=== PATIENT | female | born 1950 | race Caucasian/White ===

== ENCOUNTER 2022-11-07 14:26 | Outpatient (CLI) | payer OTHER, MEDICARE, SELFPAY ==
--- NOTE | ~2022-11-07 | CT_ITS ---
EXAMINATION: CT LE LT wo con DATE: 11/07/2022 15:09 INDICATION: Left knee osteoarthritis. TECHNIQUE: Computed tomography (CT) of the left lower limb was performed without intravenous contrast . Automated exposure control and iterative reconstruction technique were employed. The dose-length pr oduct was 1522.59 mGy-cm. COMPARISON: Left knee radiographs 10/30/22 FINDINGS: Bone alignment is normal. No fracture. There are benign bone islands in the left pelvis and proximal left femur. There is moderate left hip osteoarthritis. Left knee demonstrates moderate oste oarthritis of medial and patellofemoral compartments and mild osteoarthritis of lateral compartment. There is a small knee joint effusion. IMPRESSION: 1. Moderate left knee osteoarthritis. 2. Small left knee joint effusion. 3. Moderate left hip osteoarthritis. Reviewed, dictated and finalized at location A.
== END 2022-11-07 14:27 | disposition home or self-care (01) ==
LOC: ANHIMG 14:32
PROVIDERS: Visit Provider Orthopaedic Surgery
DX: M17.12 Unilateral primary osteoarthritis, left knee (principal); M25.462 Effusion, left knee; M16.12 Unilateral primary osteoarthritis, left hip
CPT/HCPCS: 73700

== ENCOUNTER 2023-01-08 10:36 | Outpatient (CLI) | payer OTHER, MEDICARE, SELFPAY ==
--- NOTE | 2023-01-08 11:05 | ECG_ITS ---
Measurements Intervals [place] Rate: 65 P: 6 MA: 149 QRS: 19 QRSD: 86 T: 74 QT: 390 QTc: 407 Interpretive Statements SINUS RHYTHM EARLY PRECORDIAL R/S TRANSITION MINIMAL Q WAVES- HIGH LATERAL LEADS NONSPECIFIC ST-T WAVE ABNORMALITY- HIGH LATERAL LEADS BORDERLINE ECG NO PREVIOUS ECG AVAILABLE FOR COMPARISON Electronically Signed On 01-08-2023 11:57:22 SURVEYOR ROD HELPER by Tuan Andersen D.O.
[2023-01-08 11:31] LABS: Hematocrit 42.2 % (37.0-47.0); Hemoglobin 13.8 g/dL (12.0-15.0)
[2023-01-08 11:50] LABS: Albumin Level 4.6 g/dL (3.5-5.1); Estimated Glomerular Filt Rate > 60; Glucose 98 mg/dL (65-110)
== END 2023-01-08 10:37 | disposition home or self-care (01) ==
PROVIDERS: Visit Provider Orthopaedic Surgery
DX: Z01.818 Encounter for other preprocedural examination (principal); I10 Essential (primary) hypertension; M17.12 Unilateral primary osteoarthritis, left knee; E78.5 Hyperlipidemia, unspecified
CPT/HCPCS: 36415; 82040; 82565; 82947; 85014; 85018; 93005

== ENCOUNTER 2023-03-20 12:02 | Outpatient (CLI) | payer OTHER, MEDICARE, SELFPAY ==
[2023-03-20 13:03] LABS: Basophils Percent Auto 0.6 % (0.2-1.2); Eosinophils Absolute Auto 0.1 K/mm3 (0-0.3); Eosinophils Percent Auto 1.8 % (0-4.4); Hematocrit 44.3 % (37.0-47.0); Hemoglobin 14.4 g/dL (12.0-15.0); Immature Granulocyte Absolute 0.02 K/mm3 (0.00-0.031); Immature Granulocyte Percent A 0.3 % (0-0.5); Lymphocytes Absolute Auto 1.34 K/mm3 (0.9-3.2); Lymphocytes Percent Auto 19.6 % (18.3-44.2); Mean Corpuscular HGB Conc 32.5 g/dl (32-36); Mean Corpuscular Hemoglobin 30.8 pg (26-34); Mean Corpuscular Volume 94.7 fl (80-100); Monocytes Absolute Auto 0.3 K/mm3 (0.1-0.6); Neutrophils Percent Auto 72.7 % (45.5-73.1); Platelet Count Result 294 k/mm3 (150-375); Red Blood Count 4.68 M/mm3 (4.2-5.4); Red Cell Distribution Width 12.1 % (11.5-14.5); White Blood Count 6.8 K/mm3 (4.5-10.0)
[2023-03-20 13:11] LABS: Albumin Level 4.9 g/dL (3.5-5.1)
[2023-03-20 13:14] LABS: Anion Gap 8 mmol/L (8-16); Blood Urea Nitrogen 21 mg/dL (7-17); Calcium 9.3 mg/dL (8.4-10.2); Carbon Dioxide 27 mmol/L (22-30); Chloride 104 mmol/L (98-107); Estimated Glomerular Filt Rate > 60; Glucose 157 mg/dL (65-110); Potassium 4.7 mmol/L (3.4-5.0); Sodium 139 mmol/L (137-145)
[2023-03-20 13:48] LABS: Urine Cotinine NEGATIVE
[2023-03-20 13:58] LABS: Hemoglobin A1C 6.1 % (<5.7)
[2023-03-20 14:14] LABS: MRSA (PCR) NOT DETECTED (NOT DETECTE)
== END 2023-03-20 12:03 | disposition home or self-care (01) ==
LOC: ANHSURGERY 12:10
PROVIDERS: Anesthesiology; Visit Provider Orthopaedic Surgery
DX: Z01.818 Encounter for other preprocedural examination (principal); M17.12 Unilateral primary osteoarthritis, left knee; E11.9 Type 2 diabetes mellitus without complications
CPT/HCPCS: 36415; 80048; 80307; 82040; 83036; 85025; 86850; 86900; 86901; 87641

== ENCOUNTER 2023-04-01 01:26 | Day surgery (SDC) | payer OTHER, MEDICARE, SELFPAY ==
--- NOTE | 2023-03-20 11:40 | PC.NURSE ---
PRE-OP INSTRUCTIONS, PLEASE READ CAREFULLY Report to the Outpatient Waiting Room, entrance under the green pavilion located off [facility], at time _0830_ on date _04/01/23_. Planned Procedure Time: _1030_. PACK A SMALL OVERNIGHT BAG AND LEAVE IN THE CAR ALONG WITH YOUR WALKER Time changes happen often and if your time is changed the preop area will call you the afternoon before. - You and your visitor will be asked to self-screen and do not enter if you have any COVID symptoms. - A mask is optional within the hospital at this time. -VISITING HOURS 8AM-8PM Patients may have clear liquids (water, carbonated beverages, clear teas, apple juice) until 3 hours prior to surgery (0730 AM) with a maximum of 20 ounces. - No food from midnight until time of surgery Take the following medications with a SIP of water the morning of surgery: _BUPROPION, OXCARBAZEPINE_ DO NOT STOP ANY OF YOUR OTHER PRESCRIPTION MEDICATIONS PRIOR TO SURGERY ?EXCEPT THE FOLLOWING Medications to discontinue per ANESTHESIA - _MULTIVITAMINS & SUPPLEMENTS 3 DAYS PRIOR TO SURGERY, Date to take last dose 03/28/23_ Please no make-up, nail croatian, hairspray, perfume, deodorant, or body powder the day of surgery. No jewelry (including any body piercings) or valuables the day of surgery, leave them at home. Please take a shower or bath the night before, or the morning of, surgery with an antibacterial soap. Wear comfortable, loose fitting clothing. - Jewelry must be removed prior to entering the operating room. Rings and piercings that are not removed may be cut off. - The hospital will not accept responsibility for valuables. - Please leave all valuables, including medications, at home the day of surgery. If you are going home after surgery, a licensed otr truck driver must drive you home. - NO public transportation without another adult if you receive anesthesia. - We recommend that an adult stay with you for 24 hours following discharge. - We also recommend that you do not drive, make important decision, drink alcoholic beverages, or take any drugs that were not prescribed by your health care provider for at least 24 hours after your discharge time. Follow any additional instructions given to you from your surgeon. If you or anyone in your household have experienced Covid symptoms in the past week, please notify your surgeon or the nurse liaison at the phone number below for possible testing. Instructions given to _PATIENT_and asked if any additional questions and then verbalized understanding. Patient advised to call surgeon office or pre surgery nurse liaison [phone] if any additional questions.
[2023-03-20 12:28] VITALS: BP 134/84; PULSE 78; RESP 18; TEMP 37.3; O2SAT 100; BMI 27.8
[2023-04-01] VITALS (13 sets, daily range): BP systolic 103–151; BP diastolic 55–84; PULSE 58–86; RESP 12–17; TEMP 36.4–37.1; O2SAT 94–98
--- NOTE | ~2023-04-01 | XR_ITS ---
EXAMINATION: [id number] DATE: 04/01/2023 11:41 INDICATION: Postoperative evaluation following left total knee arthroplasty. TECHNIQUE: Anteroposterior and lateral views of the left knee were obtained. COMPARISON: None. FINDINGS: Left total knee arthroplasty with patellar resurfacing appears well seated and in near anatomic align ment. No fractures identified. Expected postoperative subcutaneous and intra-articular gas. IMPRESSION: 1. Left total knee arthroplasty, negative for postoperative purposes. Reviewed, dictated and finalized at location A. D HAND
--- NOTE | 2023-04-01 07:09 | WPDHPUPDATE1 ---
History and Physical Update Update Date/Time: 04/01/23 07:09 History and Physical has been reviewed, including an updated exam of the patient. There are NO changes in the patient's condition. Risks, benefits, and alternatives have been discussed and questions answered. Patient agrees to proceed with procedure.
[2023-04-01] MEDS: ACETAMINOPHEN 500 MG TABLET 1000 MG PO ×2 (09:10→16:54)
[2023-04-01] MEDS: LACTATED RINGERS 1,000 ML 30 ML IV CONT ×2 (09:25→11:31)
[2023-04-01 09:30] LABS: Glucose Point of Care 107 mg/dl (65-105)
[2023-04-01] MEDS: TRANEXAMIC ACID 1,000MG/ISO100 1,000 MG/100 ML BAG 200 MG IVPB (09:30)
--- NOTE | 2023-04-01 09:33 | WPDANESEPPF ---
Anes - Initial Pre Proc Eval Procedure: Operation Date: 04/01/23 10:30 Proposed Procedures p Left Custom Total Knee Arthroplasty - Jerardo Urena MD Date/Time: 04/01/23 09:33 Surgeon: Jerardo Urena MD Pre Op Diagnosis: primary OA left knee Patient Data Age: 72 Gender: F Height: 1.56 m Weight: 67.8 kg Last Vital Signs Temp 37.3 C 03/20/23 12:28 Pulse 78 03/20/23 12:28 Resp 18 03/20/23 12:28 BP 134/84 03/20/23 12:28 Pulse Ox 100 03/20/23 12:28 O2 Del Method Room Air 03/20/23 12:28 Allergies Allergy/AdvReac Type Severity Reaction Status Date / Time erythromycin base AdvReac Nausea and Verified 04/01/23 08:55 Vomiting Home Medications Medication Instructions Recorded Confirmed Type bupropion HCl 300 mg 24 hr tablet, 300 mg PO QAM 06/04/22 04/01/23 History extended release donepezil 5 mg tablet 5 mg PO EVERY OTHER DAY 06/04/22 03/20/23 History ibandronate 150 mg tablet (Boniva) 150 mg PO MONTHLY 06/04/22 04/01/23 History lisinopril 10 mg tablet 10 mg PO DAILY 06/04/22 04/01/23 History oxcarbazepine 150 mg tablet 150 mg PO DAILY 06/04/22 04/01/23 History pantoprazole 40 mg tablet,delayed 40 mg PO EVERY OTHER DAY 06/04/22 04/01/23 History release simvastatin 40 mg/5 mL (8 mg/mL) 20 mg PO QHS 06/04/22 04/01/23 History oral suspension metformin 500 mg tablet 500 mg PO DAILY 10/30/22 04/01/23 History calcium carbonate 500 mg-vitamin 1 tablet PO DAILY 03/20/23 04/01/23 History D3 10 mcg (400 unit) tablet (Calcium 500 + D) coenzyme Q10 100 mg capsule 100 mg PO DAILY 03/20/23 04/01/23 History (CoQ-10) famotidine 40 mg tablet 40 mg PO DAILY 03/20/23 04/01/23 History magnesium 500 mg tablet 15 mg PO DAILY 03/20/23 04/01/23 History multivitamin 1 tablet PO DAILY 03/20/23 04/01/23 History aspirin 81 mg tablet,delayed 81 mg PO BID 14 days #28 tabs 04/01/23 Rx release meloxicam 15 mg tablet 15 mg PO DAILY #30 tabs 04/01/23 Rx oxycodone-acetaminophen 5 mg-325 1 - 2 tablet PO Q4-6H PRN pain #30 04/01/23 Rx mg tablet tabs prednisone 5 mg tablet 5 mg PO DAILY 3 weeks #21 tabs 04/01/23 Rx Laboratory Tests 04/01/23 09:27 POC Capillary Glucose 107 H mg/dl (65-105) Patient hx anesthesia problems: none Family hx anesthesia problems: none Results Review: All pre-operative results and documents have been reviewed as part of the pre-operative evaluation. [facility] Past Medical History Medical History Age related osteoporosis DVT (deep venous thrombosis) History of stress test Hyperlipemia Hypertension Surgical History Surgical History History of bunionectomy (~2017) History of pelvic surgery (~2003) reconstruction History of total hysterectomy (~1998) Family History Family History Mother Cancer Father Cancer Grandparent Arthritis Social History Social History Smoking status: Never smoker Second hand tobacco smoke exposure: No Alcohol intake: current Alcohol use details: 1/MONTH Substance use: never Substance use type: does not use Do You Feel Safe in your Home?: Yes Lack of Transportation: No Lack of Food: Never True Current Housing: I Have Housing Concerned About Future Housing: No Difficulty Paying Gas/Electric Bills: No Difficulty Paying for Meds: No Currently Unemployed: No Education: Master's Degree or Higher Difficulty w/ Childcare or Family Care: No Living arrangements: with family Spiritual care concerns: No Anes - Eval Final PreProcedure Day of Procedure 04/01/23 09:33 Patient weight: overweight Heart: regular rate and rhythm Lungs: clear to auscultation Airway: Mallampati scale class II Neurological: alert and oriented Last oral intake: >/= 8 hours
--- NOTE | 2023-04-01 09:43 | WPDANESPNB ---
Anes - Peripheral Nerve Block Date/Time: 04/01/23 09:43 I have discussed with the patient/family/POA the placement of a peripheral nerve block for post-operative pain management, including associated risks, benefits, complications, and side effects. Alternative methods of post-operative analgesia were detailed. Questions were solicited and answers provided to the satisfaction of the patient/family/POA. Time-Out: A pre-procedural Time-Out was completed immediately before starting the procedure and confirmed: Patient Identification, Site, Procedure, Patient Position and the Availability of Requisite Equipment. Clinical Indications: Acute post-operative pain management requested by the operative surgeon. Nerve Block Insertion Note Anes-nerve block: adductor canal left Patient position: supine Skin prep: chlorhexidine Needle: 22 gauge, stimulating, insulated echogenic needle. Needle length: 80 mm Technique: ultrasound Injectate: bupivacaine 0.5% with epi 5 mcg/ml (30) and dexamethasone (mg) (8) Observations: tolerated well Complications: none Procedure start time:: 936 Procedure end time:: 942
[2023-04-01] MEDS: ceFAZolin 2 GM/D5W 50 ML 2 GM/50 ML BAG IVPB ×2 (09:53→16:55)
[2023-04-01] MEDS: GENTAMICIN BONE CEMENT REFOBACIN 1 EACH TOPICAL (10:26)
[2023-04-01 11:39] LABS: Glucose Point of Care 170 mg/dl (65-105)
--- NOTE | 2023-04-01 13:05 | P.OP_ITS ---
Procedure Note - Detailed Date of Procedure 04/01/23 Pre-op Diagnosis primary OA left knee Post-op Diagnosis Same Procedure Performed Total knee arthroplasty, left. Surgeon Jerardo Urena MD Meter Repairer Sheila Black PA-C Anesthesia General and Regional (Subsartorial block.) Findings Good bone quality. No releases required. Bone resection according to preoperative 3D planning. Description of Procedure Preoperative antibiotics were given. The limb was prepped and draped in the usual sterile fashion with a well-padded tourniquet high on the thigh. The limb was exsanguinated and the tourniquet inflated to 300 mmHg. A longitudinal incision was created just medial to the patella. A trivector approach to the knee was performed. Arthrotomy was taken down through the joint capsule. No significant releases were initially taken. The femur was exposed and the F1 jig was applied. The coring tool was used to remove the cartilage for the F2 jig to sit flush with the bone. The jig was pinned and the distal cut carefully taken. Caliper measurements confirmed appropriate bony resections according to the preoperative templated plan. The F4 cutting jig for the femur was applied, at the standard rotation. The AP and anterior chamfer cuts were taken. The F5 jig was applied and the posterior chamfer cuts were taken. The tibia was prepared using the T1 jig, after removing cartilage for the jig contact points. Proper alignment was checked with the alignment stephanie. The tibia was cut using the T1u guide. Gap balancing was performed. Gap measurements were taken and the knee was trialed. Excellent alignment and soft tissue balancing was confirmed. The posterior cruciate ligament was recessed along the proximal tibia. The patella was cut for resurfacing. Three lug holes were drilled. Meniscal remnants were removed. The trial components were assembled. Excellent range of motion and proper soft tissue balancing were confirmed throughout the full range of motion. Patellar tracking was excellent. The knee was copiously irrigated periodically throughout the procedure. The real implants were cemented into position. Excess cement was carefully removed. The wound was closed in layers with interrupted #1 Vicryl suture, #2 strata fix suture, 2-0 strata fix suture, 3-0 strata fix suture. Steri-Strips placed on the skin with the knee flexed. Sterile bulky dressing applied. The patient was brought to [facility] recovery room in stable condition. There were no complications. Physician orthopedic assistant, Sheila Black PA-C, required for surgery; including patient positioning, draping, tissue retraction, maintaining instrument position, cement removal, wound closure, and dressing placement. Implants Conform[employer] Imprint total knee arthroplasty. Cemented. Cruciate retaining. 6 mm insert. 29 mm round patella. Estimated Blood Loss 50 Drains No Complications No immediate complications Condition Stable Disposition PACU [facility] Billing Surgery - Charge Forward: Surgery Billing
--- NOTE | 2023-04-01 13:24 | ADMGEN ---
This patient, Sana Sykes, was admitted to [facility] Surg Room 307-02 at 1300. Patient/family oriented to hospital policies and general routines including ID bracelet, bed and alarms, visiting hours, pain management, procedures, bathroom and other care routines, personal items, smoking policy, room service/diet, and visiting hours. Information on how to activate the Rapid Response Team has been discussed. Patient/Family are encouraged to report perceived risks to care and to ask questions if they do not understand what they are told or what they should do.
[2023-04-01 16:32] LABS: Glucose Point of Care 253 mg/dl (65-105)
[2023-04-01] MEDS: metFORMIN HCL 500 MG TABLET PO (16:53)
[2023-04-01] MEDS: SENNA/DOCUSATE SODIUM TABLET 2 TAB PO (16:53)
[2023-04-01] MEDS: MELOXICAM 7.5 MG TABLET PO (16:54)
[2023-04-01] MEDS: FAMOTIDINE 20 MG TABLET 40 MG PO (16:54)
[2023-04-01] MEDS: ASPIRIN 81 MG ENTERIC TABLET PO (16:54)
[2023-04-01 22:12] LABS: Glucose Point of Care 187 mg/dl (65-105)
[2023-04-02] MEDS: ACETAMINOPHEN 500 MG TABLET 1000 MG PO (00:45)
[2023-04-02 02:34] VITALS: BP 122/78; PULSE 70; RESP 14; TEMP 37; O2SAT 98
[2023-04-02] MEDS: ceFAZolin 2 GM/D5W 50 ML 2 GM/50 ML BAG IVPB ×2 (02:50→09:07)
[2023-04-02 06:34] VITALS: BP 130/60; PULSE 65; RESP 14; TEMP 36.8; O2SAT 99
[2023-04-02 06:44] LABS: Basophils Percent Auto 0.1 % (0.2-1.2); Eosinophils Percent Auto 0.1 % (0-4.4); Hematocrit 33.9 % (37.0-47.0); Immature Granulocyte Absolute 0.06 K/mm3 (0.00-0.031); Immature Granulocyte Percent A 0.4 % (0-0.5); Lymphocytes Absolute Auto 1.05 K/mm3 (0.9-3.2); Lymphocytes Percent Auto 7.7 % (18.3-44.2); Mean Corpuscular HGB Conc 32.4 g/dl (32-36); Mean Corpuscular Hemoglobin 30.8 pg (26-34); Mean Platelet Volume 10.6 fl (7.4-10.4); Monocytes Absolute Auto 0.9 K/mm3 (0.1-0.6); Monocytes Percent Auto 6.9 % (2.6-8.5); Neutrophils Absolute Auto 11.6 K/mm3 (1.3-6.7); Neutrophils Percent Auto 84.8 % (45.5-73.1); Platelet Count Result 232 k/mm3 (150-375); Red Blood Count 3.57 M/mm3 (4.2-5.4); White Blood Count 13.7 K/mm3 (4.5-10.0)
[2023-04-02 08:00] VITALS: BP 118/58; PULSE 56; RESP 18; TEMP 36.9; O2SAT 98
--- NOTE | 2023-04-02 08:01 | WPDANESPN ---
Anes - Prog Note Post-Op Date/Time: 04/02/23 08:01 Cardiovascular status: normal Respiratory status: normal Airway patency: baseline Mental status: baseline Post-Op hydration status: normal Vital Signs: Last Vital Signs Temp 36.8 C 04/02/23 06:34 Pulse 65 04/02/23 06:34 Resp 14 04/02/23 06:34 BP 130/60 04/02/23 06:34 Pulse Ox 99 04/02/23 06:34 O2 Del Method Room Air 04/01/23 20:00 O2 Flow Rate 8 04/01/23 11:45 Pain Score (VAS): 0 I/O: Intake & Output 04/01/23 04/02/23 04/02/23 23:59 07:59 15:59 Intake Total 50 50 Balance 50 50 Laboratory Tests 04/02/23 05:49 04/01/23 04/01/23 04/01/23 09:27 11:35 16:27 WBC RBC Hgb Hct MCV MCH MCHC RDW Plt Count MPV Immature Gran % (Auto) Neut % (Auto) Lymph % (Auto) [place] % (Auto) Eos % (Auto) Baso % (Auto) Lymph # (Auto) [place] # (Auto) Eos # (Auto) Baso # (Auto) Abs Immat Gran (auto) Absolute Neuts (auto) Absolute Nucleated RBC Nucleated RBC % Sodium Potassium Chloride Carbon Dioxide Anion Gap BUN Creatinine Estim Creat Clear Calc Estimated GFR Glucose POC Capillary Glucose 107 H 170 H 253 H Calcium 04/01/23 04/02/23 22:09 05:49 WBC 13.7 H RBC 3.57 L Hgb 11.0 L D Hct 33.9 L MCV 95.0 MCH 30.8 MCHC 32.4 RDW 12.0 Plt Count 232 MPV 10.6 H Immature Gran % (Auto) 0.4 Neut % (Auto) 84.8 H Lymph % (Auto) 7.7 L [place] % (Auto) 6.9 Eos % (Auto) 0.1 Baso % (Auto) 0.1 L Lymph # (Auto) 1.05 [place] # (Auto) 0.9 H Eos # (Auto) 0.0 Baso # (Auto) 0.0 Abs Immat Gran (auto) 0.06 H Absolute Neuts (auto) 11.6 H Absolute Nucleated RBC 0.0 Nucleated RBC % 0.0 Sodium Pending Potassium Pending Chloride Pending Carbon Dioxide Pending Anion Gap Pending BUN Pending Creatinine Pending Estim Creat Clear Calc Pending Estimated GFR Pending Glucose Pending POC Capillary Glucose 187 H Calcium Pending Post-procedural complaints: none Patient Feedback: Patient satisfied with anesthetic care.
--- NOTE | 2023-04-02 08:03 | PM.DS ---
DS: Admitting Diagnosis Discharge Date 04/02/23 Admitting Diagnosis OA knee Left DS: Discharge Diagnosis Discharge Diagnosis (1) Status post total left knee replacement: Code(s): Z96.652 - Presence of left artificial knee joint Status: Acute Assessment and Plan: Postop day 1: Left total knee arthroplasty. Patient tolerated procedure well. No complications. Pain manageable with pain medication. No numbness or tingling. We had a lengthy discussion regarding postoperative wound care, limitations, expectations, and exercises. Patient shows good understanding. She has had initial physical therapy and is tolerating it well. DVT prophylaxis: 81 mg baby aspirin b.i.d. for 14 days. Pain medication: Percocet. Patient has followup appointment with Dr. Urena in 3 weeks. DS: Summary Hospital Course Reason for hospitalization: Total knee arthroplasty Hospital Course: Patient tolerated procedure well. Has had initial PT/OT. Status at Discharge Functional status at discharge: uses cane/walker Overall status at discharge: patient is progressing back to baseline Time Spent with Patient Time attestation: Total time spent providing and/or coordinating discharge services: Exam Narrative: 72-year-old overweight female. Resting comfortably in bed. Alert and oriented x3. No acute distress. Wearing compression socks bilaterally. Dressing dry and intact without drainage. Mild swelling. No ecchymosis. Mild erythema. No hematoma. Range of motion limited due to pain. Calf nontender. Neurologic status intact. No varicosities. Distal pulses palpable. Good quad function. DS: Data Data Completed and Pending Labs on day of discharge: Labs from last 24 hours 04/02/23 04/01/23 04/01/23 05:49 22:09 16:27 WBC 13.7 H RBC 3.57 L Hgb 11.0 L D Hct 33.9 L MCV 95.0 MCH 30.8 MCHC 32.4 RDW 12.0 Plt Count 232 MPV 10.6 H Immature Gran % (Auto) 0.4 Neut % (Auto) 84.8 H Lymph % (Auto) 7.7 L [place] % (Auto) 6.9 Eos % (Auto) 0.1 Baso % (Auto) 0.1 L Lymph # (Auto) 1.05 [place] # (Auto) 0.9 H Eos # (Auto) 0.0 Baso # (Auto) 0.0 Abs Immat Gran (auto) 0.06 H Absolute Neuts (auto) 11.6 H Absolute Nucleated RBC 0.0 Nucleated RBC % 0.0 Sodium Pending Potassium Pending Chloride Pending Carbon Dioxide Pending Anion Gap Pending BUN Pending Creatinine Pending Estim Creat Clear Calc Pending Estimated GFR Pending Glucose Pending POC Capillary Glucose 187 H 253 H Calcium Pending 04/01/23 04/01/23 11:35 09:27 WBC RBC Hgb Hct MCV MCH MCHC RDW Plt Count MPV Immature Gran % (Auto) Neut % (Auto) Lymph % (Auto) [place] % (Auto) Eos % (Auto) Baso % (Auto) Lymph # (Auto) [place] # (Auto) Eos # (Auto) Baso # (Auto) Abs Immat Gran (auto) Absolute Neuts (auto) Absolute Nucleated RBC Nucleated RBC % Sodium Potassium Chloride Carbon Dioxide Anion Gap BUN Creatinine Estim Creat Clear Calc Estimated GFR Glucose POC Capillary Glucose 170 H 107 H Calcium Discharge Plan Discharge Patient Disposition: Home, Self-Care Discharge Instructions: See green instruction sheets Stand Alone Forms: General Discharge Instructions Follow-up/Referrals: Sheila Black PA [Physician Microbiology Quality Control Technician] - Discharge Medications: New aspirin 81 mg tablet,delayed release (DR/EC) 81 mg PO BID 14 Days Qty: 28 0RF meloxicam 15 mg tablet 15 mg PO DAILY Qty: 30 0RF Rx Instructions: Cut in half. Take 1/2 in morning and 1/2 at night. Take with food. Stop if stomach upset. prednisone 5 mg tablet 5 mg PO DAILY 21 Days Qty: 21 0RF oxycodone-acetaminophen 5-325 mg tablet 1 - 2 tablet PO Q4-6H MDD 6 PRN (Reason: pain) Qty: 30 0RF Continued lisinopril 10 mg tablet 10 mg PO DAILY simvastatin 40
[2023-04-02 08:06] LABS: Glucose Point of Care 103 mg/dl (65-105)
[2023-04-02 08:47] LABS: Anion Gap 6 mmol/L (8-16); Blood Urea Nitrogen 15 mg/dL (7-17); Calcium 8.1 mg/dL (8.4-10.2); Carbon Dioxide 23 mmol/L (22-30); Chloride 104 mmol/L (98-107); Estimated CRCL calculation 56 ml/min; Estimated Glomerular Filt Rate > 60; Glucose 100 mg/dL (65-110); Sodium 133 mmol/L (137-145)
[2023-04-02] MEDS: buPROPion HCL XL (24 HR) 150 MG TABCR 300 MG PO (09:03)
[2023-04-02] MEDS: metFORMIN HCL 500 MG TABLET PO (09:03)
[2023-04-02] MEDS: lisinopriL 10 MG TABLET PO (09:03)
[2023-04-02] MEDS: predniSONE 5 MG TABLET PO (09:03)
[2023-04-02] MEDS: PANTOPRAZOLE 40 MG TABLET PO (09:04)
[2023-04-02] MEDS: OXcarbazepine 150 MG TABLET PO (09:04)
[2023-04-02] MEDS: SENNA/DOCUSATE SODIUM TABLET 2 TAB PO (09:04)
[2023-04-02] MEDS: ASPIRIN 81 MG ENTERIC TABLET PO (09:04)
[2023-04-02] MEDS: polyethylene glycoL 3350 17 GM POWD.PACK PO (09:04)
[2023-04-02] MEDS: FAMOTIDINE 20 MG TABLET 40 MG PO (09:04)
[2023-04-02] MEDS: MELOXICAM 7.5 MG TABLET PO (09:07)
[2023-04-02 09:29] LABS: Potassium 4.2 mmol/L (3.4-5.0)
== END 2023-04-02 11:27 | disposition home or self-care (01) ==
LOC: ANHSURGERY 08:39 → ANH3MEDSUR 12:51
PROVIDERS: Physician Assistant Surgical; Visit Provider Orthopaedic Surgery
PROC: (CPT 27447; principal; 2023-04-01 10:30)
DX: M17.12 Unilateral primary osteoarthritis, left knee (principal); I10 Essential (primary) hypertension; E78.5 Hyperlipidemia, unspecified; Z79.84 Long term (current) use of oral hypoglycemic drugs; Z79.82 Long term (current) use of aspirin; Z79.891 Long term (current) use of opiate analgesic; Z79.52 Long term (current) use of systemic steroids; Z98.890 Other specified postprocedural states; Z86.718 Personal history of other venous thrombosis and embolism; Z80.9 Family history of malignant neoplasm, unspecified; G89.18 Other acute postprocedural pain
CPT/HCPCS: 64447; 27447; 36415; 73560; 80048; 80307; 82040; 82948; 83036; 85025; 86850; 86900; 86901; 87641; 97110; 97116; 97161; 97165; 97530; 97535; A9270; C1713; C1776; J0171; J0690; J1100; J1170; J1885; J2250; J2270; J2405; J2704; J2795; J3010; J7120; J7512